=== PATIENT | male | born 1975 | race Caucasian/White ===

== ENCOUNTER 2019-11-05 09:56 | Inpatient (IN) | payer OTHER ==
[2019-11-05] VITALS (8 sets, daily range): BP systolic 142–209
[~2019-11-05] VITALS: Ht 185.4 cm; Wt 130.9 kg
--- NOTE | 2019-11-05 10:05 | NUR ---
Patient to ER bed 04 to gown for evaluation. Side rails up.
[2019-11-05] MEDS ORDERED: PIPERACILLIN/TAZO 3.375 GM in NS 50 ML IV ONE (11:00)
[2019-11-05] MEDS ORDERED: OSELTAMIVIR PHOSPHATE 75 MG CAPSULE PO ONE (11:00)
--- NOTE | 2019-11-05 11:00 | NUR ---
PATIENT PRESENTS TO THE ER WITH HX OF COUGH WITH FEVER AND BODY ACHES FOR ONE WEEK; NO TRAUMA, NO OTHER REMARKABLE S/S; PATIENT IS ON FRONT OFFICE ASSOCIATE AND SAO2, OXYGEN 3LM NC; NASAL SWAB FOR FLU; NO TRAUMA, NO OTHER REMARKABLE S/S
--- NOTE | 2019-11-05 11:02 | NUR ---
PATIENT TO ER #4 AT 1005 AND ERMD EVALUATION AT 1020
[2019-11-05 11:19] LABS: BASOPHILS # (AUTO) 0.1 K/uL (0.0-0.2); BASOPHILS % (AUTO) 0.8 % (0.0-2.0); HEMOGLOBIN 13.1 g/dL (14.0-18.0); MEAN CORPUSCULAR HEMOGLOBIN 29 pg (27-31); MEAN CORPUSCULAR HGB CONC 35 % (32-36); MEAN CORPUSCULAR VOLUME 83 fL (79.0-98.0); MONOCYTES # (AUTO) 0.6 K/uL (0.0-1.0); MONOCYTES % (AUTO) 5.6 % (1.7-9.3); NEUTROPHILS # (AUTO) 9.5 K/uL (1.8-7.7); NEUTROPHILS % (AUTO) 84.6 % (40.0-70.0); PLATELET COUNT (AUTO) 262 K/uL (130-430); RED CELL DISTRIBUTION WIDTH 14.4 % (9.0-15.0); WHITE BLOOD COUNT (AUTO) 11.3 K/uL (4.8-10.8)
[2019-11-05] MEDS ORDERED: PIPERACILLIN/TAZOBACTAM 3.375 GM/VIAL (ZOSYN) IV ONE (11:29)
[2019-11-05 11:32] LABS: CALCIUM 8.8 mg/dL (8.4-11.0); CREATININE 1.24 mg/dL (0.55-1.30); POTASSIUM 3.1 mmol/L (3.5-5.1)
[2019-11-05 11:35] LABS: INR 1.1 (0.80-1.20)
[2019-11-05 11:37] LABS: ALBUMIN 2.6 g/dL (3.4-4.8); TOTAL BILIRUBIN 0.9 mg/dL (0.0-1.0)
--- NOTE | 2019-11-05 11:43 | NUR ---
ABP REMAINS ELEVATED, REASSESSMENT BY ERMD; ORDERS EXECUTED
[2019-11-05] MEDS ORDERED: hydrALAZINE HCL 20 MG/ML VIAL IVP ONE (11:45)
[2019-11-05] MEDS ORDERED: ASPIRIN 81 MG TAB.CHEW PO ONE (12:00)
--- NOTE | 2019-11-05 12:16 | NUR ---
SAO2 DECREASE AND TEMPERATURE INCREASE, ERMD ADVISED; PATIENT REMAINS SEDATE AND PAIN FREE; DISPOSITION PENDING
[2019-11-05] MEDS ORDERED: FUROSEMIDE 40 MG/4 ML VIAL IVP ONE (12:30)
[2019-11-05] MEDS ORDERED: ENALAPRILAT DIHYDRATE 1.25 MG/ML VIAL IVP ONE (12:30)
[2019-11-05] MEDS ORDERED: NITROGLYCERIN 1 INCH (GM) OINT. TP ONE (12:30)
--- NOTE | 2019-11-05 13:01 | NUR ---
REASSESSMENT; PATIENT IS SEDATE WITH IMPROVED VS, ON BY-PAP; DENIES PAIN; ICU ADMISSION PENDING
[2019-11-05] MEDS ORDERED: ASPIRIN 81 MG TAB.CHEW ONE (14:43)
[2019-11-05] MEDS ORDERED: NITROGLYCERIN 1 INCH (GM) OINT. ONE (14:43)
[2019-11-05] MEDS ORDERED: FUROSEMIDE 40 MG/4 ML VIAL ONE (14:44)
[2019-11-05] MEDS ORDERED: ENALAPRILAT DIHYDRATE 1.25 MG/ML VIAL ONE (14:46)
[2019-11-05] MEDS ORDERED: ALBUTEROL SULFATE 0.083% 2.5 MG/3 ML VIAL.NEB INH SCH (15:00)
--- NOTE | 2019-11-05 15:36 | NUR ---
REASSESSMENT; PATIENT REMAINS SEDATE AND PAIN FREE; DISPOSTION TO ICU PENDING
--- NOTE | 2019-11-05 17:14 | NUR ---
REASSESSMENT; PATIENT PREPARED FOR ADMISSION TO ICU; REMAINS SEDATE AND ASYMPTOMATIC; PATIENT TRANSPORTED ACLS, IMPROVED
--- NOTE | 2019-11-05 17:35 | NUR ---
ADMITTED FROM ER, PATIENT IS AWAKE AND ALERT, NOT IN ACUTE DISTRESS. O2 AT 15L VIA VENTURI MASK, SPO2 GOOD. SINUS TACHYCARDIA ON THE MONITOR. INITIAL VITAL SIGNS CHECKED AND RECORDED. DENIES ANY FORM OF DISCOMFORT. WILL CONTINUE TO MONITOR.
[2019-11-05] MEDS ORDERED: IPRATROPIUM BROM 0.5 MG/2.5 ML VIAL.NEB (ATROVENT) INH PRN (18:00)
[2019-11-05] MEDS ORDERED: ALBUTEROL SULFATE 0.083% 2.5 MG/3 ML VIAL.NEB INH PRN (18:00)
--- NOTE | 2019-11-05 18:30 | NUR ---
DR. SWANSON AND DR. GOLDBERG HERE TO SEE PATIENT.
[2019-11-05] MEDS ORDERED: POTASSIUM CHLORIDE 20 MEQ TAB.PRT.SR PO ONE (18:45)
--- NOTE | 2019-11-05 19:14 | NUR ---
SPOKE TO DR. SINGH RE: CONSULT FOR ELEVATED TROPONIN, WILL COME AND SEE THE PATIENT.
--- NOTE | 2019-11-05 19:30 | NUR ---
initial PM note Received patient after report from Ani TIMMONS. Patient AAO x4, denies pain or discomfort; no respiratory difficulty noted at this time. Venti mask in place at 15 L/min. Lung sounds mild Rhonchi and decreased BL bases. IV site L hand #20g patent and no signs of infiltration noted. Blood pressure noted to start climbing from 150 systolic to 167. will continue to monitor for changes. Call light within reach.
[2019-11-05] MEDS: ALBUTEROL SULFATE 0.083% 2.5 MG/3 ML VIAL.NEB INH SCH (20:01)
[2019-11-05] MEDS: IPRATROPIUM BROM 0.5 MG/2.5 ML VIAL.NEB (ATROVENT) INH SCH (20:01)
[2019-11-05] MEDS: cefTRIAXone 1 GM in D5W 50 ML IV SCH (21:53)
[2019-11-05] MEDS ORDERED: ENALAPRILAT DIHYDRATE 1.25 MG/ML VIAL IVP PRN (22:00)
--- NOTE | 2019-11-05 22:45 | NUR ---
Patient's blood pressure elevated 184/95. Dr Ramírez contacted and orders for Vasotec received and delivered to patient. will continue to monitor.
[2019-11-05] MEDS: AZITHROMYCIN 500 MG in NS 250 ML IV SCH (23:38)
[2019-11-06] VITALS (19 sets, daily range): BP systolic 138–200
--- NOTE | 2019-11-06 00:26 | NUR ---
PAGED DR. AGUIRRE [phone] SPOKE WITH GUERA
--- NOTE | 2019-11-06 00:43 | NUR ---
PAGED DR. SINGH [phone] SPOKE WITH GUERA
--- NOTE | 2019-11-06 00:50 | NUR ---
Dr de oliveira called and transferred by answering service. Dr De Oliveira was informed of patient's increased blood pressure and inability to control by previously administered vasotec. Orders received for Losartan 50 mg PO now and Q am. will give medication now and continue to monitor.
[2019-11-06] MEDS ORDERED: LOSARTAN POTASSIUM 50 MG TABLET (COZAAR) PO ONE (01:00)
[2019-11-06] MEDS: VANCOMYCIN HCL 2,000 MG in NS 500 ML IV SCH ×3 (01:10→21:53)
[2019-11-06] MEDS: ALBUTEROL SULFATE 0.083% 2.5 MG/3 ML VIAL.NEB INH SCH ×2 (01:50→20:35)
[2019-11-06] MEDS: IPRATROPIUM BROM 0.5 MG/2.5 ML VIAL.NEB (ATROVENT) INH SCH ×2 (01:51→20:35)
[2019-11-06 05:57] LABS: BASOPHILS # (AUTO) 0.1 K/uL (0.0-0.2); BASOPHILS % (AUTO) 0.5 % (0.0-2.0); EOSINOPHILS % (AUTO) 0.2 % (0.0-4.0); HEMATOCRIT 34.2 % (36-54); HEMOGLOBIN 11.8 g/dL (14.0-18.0); LYMPHOCYTES # (AUTO) 1.4 K/uL (1.0-5.5); LYMPHOCYTES % (AUTO) 12.2 % (20.5-51.5); MEAN CORPUSCULAR HEMOGLOBIN 29 pg (27-31); MEAN CORPUSCULAR HGB CONC 34 % (32-36); MEAN CORPUSCULAR VOLUME 83 fL (79.0-98.0); MONOCYTES # (AUTO) 1.1 K/uL (0.0-1.0); MONOCYTES % (AUTO) 9.8 % (1.7-9.3); NEUTROPHILS # (AUTO) 8.6 K/uL (1.8-7.7); NEUTROPHILS % (AUTO) 77.3 % (40.0-70.0); PLATELET COUNT (AUTO) 259 K/uL (130-430); RED BLOOD CELL COUNT(AUTO) 4.11 MIL/uL (4.2-6.2); RED CELL DISTRIBUTION WIDTH 14.1 % (9.0-15.0); WHITE BLOOD COUNT (AUTO) 11.1 K/uL (4.8-10.8)
[2019-11-06 05:58] LABS: ALBUMIN 2.3 g/dL (3.4-4.8); CALCIUM 7.8 mg/dL (8.4-11.0); CREATININE 0.97 mg/dL (0.55-1.30); POTASSIUM 3.1 mmol/L (3.5-5.1); TOTAL BILIRUBIN 0.8 mg/dL (0.0-1.0)
[2019-11-06] MEDS: LOSARTAN POTASSIUM 50 MG TABLET (COZAAR) PO SCH (08:25)
[2019-11-06] MEDS ORDERED: POTASSIUM CHLORIDE 20 MEQ TAB.PRT.SR PO ONE (09:00)
--- NOTE | 2019-11-06 10:00 | NUR ---
DR LOCKETT OF CARDIOLOGY IS HERE AND AWARE THE PT IS STILL VERY HYPERTENSIVE. HE IS ORDERING SOME MORE MEDICATION. THE PT IS ALERT AND ORIENTATED WITHOUT C/O.
[2019-11-06] MEDS: hydrALAZINE HCL 25 MG TABLET PO SCH ×2 (10:21→21:56)
[2019-11-06] MEDS ORDERED: methylPREDNISolone SOD SUCC 40 MG/ML VIAL IVP ONE (11:00)
[2019-11-06] MEDS ORDERED: ENOXAPARIN SODIUM 40 MG/0.4 ML SYRINGE SUBCUT ONE (11:00)
--- NOTE | 2019-11-06 11:12 | NUR ---
Discharge Planning/ICU Assessment completed MERCHANDISE TEAM MANAGER met with patient at bedside. Patient is alert and oriented. He does not expect to have any discharge needs and stated he has no Social Service needs. He has no PCP. Discussed the need for and how to obtain a PCP. Patient agrees and is competent to follow up. No barriers to discharge home with apparent at this time. Possible need of O2. Social Service/Case Management/Media Theorist And Author Of will remain available.
--- NOTE | 2019-11-06 12:00 | NUR ---
APRESOLINE WAS ORDERED AND THE PTS BLOOD PRESSURE IS BETTER. THE PT HAS NO C/O.
[2019-11-06] MEDS: cefTRIAXone 1 GM in D5W 50 ML IV SCH (17:30)
[2019-11-06] MEDS: AZITHROMYCIN 500 MG in NS 250 ML IV SCH (17:33)
[2019-11-06] MEDS ORDERED: amLODIPine BESYLATE 10 MG TABLET PO SCH (18:00)
[2019-11-06] MEDS ORDERED: amLODIPine BESYLATE 10 MG TABLET PO ONE (18:00)
--- NOTE | 2019-11-06 18:00 | NUR ---
THE PT HAS AN ORDER TO TRANSFER. I WAS GIVING THE PT HIS IV ANITBIOTIC THE PT C/O HIS IV WAS LEAKING. I THEREFORE STARTED AN IV ON HIS RIGHT HAND. HIS BLOOD PRESSURE NEEDED TO GO DOWN SOME MORE AND DR LOCKETT PUT IN AN ORDER FOR [facility]. PT IS STABLE AND WITHOUT C/O.
--- NOTE | 2019-11-06 18:38 | NUR ---
Notes- Received pt from ICU, awake and oriented. On o2 4l tolerating well. Dinner tray given. Family at bedside. Denies any pain or discomfort. Will endorse
[2019-11-06] MEDS: methylPREDNISolone SOD SUCC 40 MG/ML VIAL IVP SCH (21:53)
--- NOTE | 2019-11-06 22:25 | NUR ---
VANCOMYCIN 2000 MG IVPB administer as ordered no adverse Reaction noted skin Rash free dry warm .
--- NOTE | 2019-11-07 | NUR ---
ASSIST PATIENT OUT OF BED ambulates steady GAIT no SOB safety measures implemented .
[2019-11-07] MEDS: ALBUTEROL SULFATE 0.083% 2.5 MG/3 ML VIAL.NEB INH SCH ×4 (00:20→20:16)
[2019-11-07] MEDS: IPRATROPIUM BROM 0.5 MG/2.5 ML VIAL.NEB (ATROVENT) INH SCH ×4 (00:21→20:16)
[2019-11-07 00:28] VITALS: BP_SYST 145
--- NOTE | 2019-11-07 03:30 | NUR ---
Hourly Rounding patient Resting is verbally Responsive HOB elevated on 02 NC @ 2 LPM chest movement symmetrical call bustillo given to patient .
--- NOTE | 2019-11-07 03:34 | NUR ---
SAFETY measures patient Resting Respirations Regular also unlabored no acute distress noted assist as needed .
[2019-11-07 07:52] LABS: ALBUMIN 2.5 g/dL (3.4-4.8); BASOPHILS # (AUTO) 0.1 K/uL (0.0-0.2); BASOPHILS % (AUTO) 0.5 % (0.0-2.0); CALCIUM 8.2 mg/dL (8.4-11.0); CREATININE 0.96 mg/dL (0.55-1.30); HEMATOCRIT 35.8 % (36-54); HEMOGLOBIN 12.6 g/dL (14.0-18.0); LYMPHOCYTES # (AUTO) 1.1 K/uL (1.0-5.5); LYMPHOCYTES % (AUTO) 8.3 % (20.5-51.5); MEAN CORPUSCULAR HEMOGLOBIN 31 pg (27-31); MEAN CORPUSCULAR HGB CONC 35 % (32-36); MONOCYTES # (AUTO) 0.5 K/uL (0.0-1.0); MONOCYTES % (AUTO) 3.7 % (1.7-9.3); NEUTROPHILS # (AUTO) 11.8 K/uL (1.8-7.7); NEUTROPHILS % (AUTO) 87.5 % (40.0-70.0); PLATELET COUNT (AUTO) 314 K/uL (130-430); POTASSIUM 3.5 mmol/L (3.5-5.1); RED BLOOD CELL COUNT(AUTO) 4.08 MIL/uL (4.2-6.2); RED CELL DISTRIBUTION WIDTH 13.9 % (9.0-15.0); TOTAL BILIRUBIN 0.6 mg/dL (0.0-1.0); WHITE BLOOD COUNT (AUTO) 13.5 K/uL (4.8-10.8)
[2019-11-07 08:00] VITALS: BP_SYST 183
--- NOTE | 2019-11-07 08:00 | NUR ---
Note Pt sitting up in bed with O2 at 2L/nc, eating his breakfast at this time. No SOB/resp distress or pain/discomfort noted at this time. Tele unit attached and intact. IV in right hand intact and patent at this time. No needs noted at this time. Call light within reach.
[2019-11-07 08:10] LABS: MEAN CORPUSCULAR VOLUME 88 fL (79.0-98.0)
[2019-11-07] MEDS: hydrALAZINE HCL 25 MG TABLET PO SCH ×2 (08:15→21:17)
[2019-11-07] MEDS: LOSARTAN POTASSIUM 50 MG TABLET (COZAAR) PO SCH (08:16)
[2019-11-07] MEDS: amLODIPine BESYLATE 10 MG TABLET PO SCH (08:17)
[2019-11-07] MEDS: methylPREDNISolone SOD SUCC 40 MG/ML VIAL IVP SCH ×2 (08:17→21:17)
[2019-11-07] MEDS: VANCOMYCIN HCL 2,000 MG in NS 500 ML IV SCH ×2 (08:21→21:16)
[2019-11-07] MEDS: ENOXAPARIN SODIUM 40 MG/0.4 ML SYRINGE SUBCUT SCH (08:24)
[2019-11-07] MEDS ORDERED: methylPREDNISolone SOD SUCC 40 MG/ML VIAL ONE (08:26)
--- NOTE | 2019-11-07 11:00 | NUR ---
Note Dr Mcgowan and Dr Dolan assessed pt at bedside. No needs noted at this time. Call light within reach.
[2019-11-07 11:36] VITALS: BP_SYST 160
--- NOTE | 2019-11-07 12:00 | NUR ---
Note Pt was seen and assessed by Dr Ramírez and Dr Dorman and orders written and carried out. Pt ambulatory with steady gait in room. No needs noted. Pt sitting up in BS chair at this time. Call light within reach.
--- NOTE | 2019-11-07 14:15 | NUR ---
Note Pt denies any needs at this time. Continues to ambulate in room and at ad tio.
[2019-11-07 15:51] VITALS: BP_SYST 123
[2019-11-07] MEDS: cefTRIAXone 1 GM in D5W 50 ML IV SCH (17:38)
[2019-11-07] MEDS: AZITHROMYCIN 500 MG in NS 250 ML IV SCH (18:15)
--- NOTE | 2019-11-07 18:55 | NUR ---
Note Pt was checked on q1' and PRN all shift for needs and care. No SOB/resp distress or chest pain/discomfort noted at this time. IV in right hand intact and patent. Pt ambulatory in room and hallway with steady gait and no SOB on ambulation noted. Call light within reach.
[2019-11-07 19:00] VITALS: BP_SYST 153
--- NOTE | 2019-11-07 19:15 | NUR ---
change of shift.pt.presents quiescent affect;calm,resting,reading.no c/o pain,nausea.pt.presents admit dx;pna; respiratory patten/.character unlabored.pt.presents stable respiratory status@room air.no c/o pain,nausea.iv fluids infusing.zithromax;abx;ivpb.pt.capable to ambulate w/out assistance.call light/telephone w/in reach of the pt.i have presented the room telephone indication.pt.understanding satisfactory.
[2019-11-07 20:00] VITALS: BP_SYST 153
--- NOTE | 2019-11-07 20:00 | NUR ---
pt.assessed.v/s assessed;noted b/p slightly elevated.to review e-mar med-list.b/p medications.i have apprised the pt.that i may provide snacks/beverages w/in the shift.no requests posited@this hour.no c/o pain,nausea.pt.capable to ambulate w/out assistance.genera status stable;respiratory status stable;unlabored;noted o2-sat%=93%@room air.pt.refused o2 therapy via nasal cannulae. family@the bedside. has inquired of the projected d/c date.pt.stated tentative tomorrow;;11/08/19.i have prestented pt. pt.instructions;re;s/s stroke,stroke preventions./interventions.i have reviewed the b/p parameters; pt.presents htn history but has not followed medication regime in the past.to f/u.i noted that the blood glucose presents elevated level:>300's pt.he is not diabetic bit will f/u as an pout pt.w/pmd.
--- NOTE | 2019-11-07 21:00 | NUR ---
2100p medication administered.i have administered vancomycin;abx;ivpb.pt.requested juice;cranberry.i have provided the juice.
--- NOTE | 2019-11-07 22:00 | NUR ---
pt.assessed.pt.presents quiescent affect;calm,resting viewing tv programming.pt.is ambulalting upon the unit;gait assessed; steady. family has left the room.no c/o pain,nausea.no requests posited@this hour.call light/telephone w/in reach of the pt.
[2019-11-08] VITALS: BP_SYST 142
--- NOTE | 2019-11-08 | NUR ---
pt.assessed.v/s assessed;values w/in normal limits.no c/o pain,nausea.o2-sat%=98%.unlabored.i have removed the iv fluids;ns-flush post administration vancomycin;abx;ivpb.pt.requested snacks/juice.i have prove a sandwich/crackers,cranberry juice.call light/telephone w/in reach of the pt.
[2019-11-08] MEDS: ALBUTEROL SULFATE 0.083% 2.5 MG/3 ML VIAL.NEB INH SCH ×2 (01:26→07:46)
[2019-11-08] MEDS: IPRATROPIUM BROM 0.5 MG/2.5 ML VIAL.NEB (ATROVENT) INH SCH ×2 (01:31→07:46)
--- NOTE | 2019-11-08 02:00 | NUR ---
pt.assessed.pt.presents quiescent affect;calm,resting.viewing tv programming.pt.requested juice;cranberry.i have provided the juice. no additional requests posited@this hour.no c/o pain,nausea.call light/telephone w/in the reach of the pt.
--- NOTE | 2019-11-08 04:00 | NUR ---
pt.assessed.pt.presents quiescent affect;calm,resting viewing tv programming.pt.had requested cough medication.i reviewed the [facility] med-list.no cough medication ordered.i apprised the pt.pt.noted the late hour and did not pursue paging the md.no additional requests posited @this hour.
--- NOTE | 2019-11-08 06:43 | NUR ---
pt.assessed.pt.presents quiescent affect;calm,resting viewing tv programming.no c/o pain,nausea.no requests posited@this hour. i have weighed the pt.this am;2/t chf.general status stable.respiratory status stable;unlabored;02-sat%=94%.call light/telephone w/in reach of the pt.
--- NOTE | 2019-11-08 07:30 | NUR ---
Opening Note Patient received awake and eating at this time with no complaints of pain. Patient in no signs of distress. Reinforced safety precautions and use of call light. Bed at lowest position.
[2019-11-08 08:00] VITALS: BP_SYST 167
[2019-11-08 08:11] LABS: ALBUMIN 2.7 g/dL (3.4-4.8); CALCIUM 8.8 mg/dL (8.4-11.0); CREATININE 1.09 mg/dL (0.55-1.30); POTASSIUM 3.8 mmol/L (3.5-5.1); TOTAL BILIRUBIN 0.6 mg/dL (0.0-1.0)
[2019-11-08] MEDS: methylPREDNISolone SOD SUCC 40 MG/ML VIAL IVP SCH (08:19)
[2019-11-08] MEDS: VANCOMYCIN HCL 2,000 MG in NS 500 ML IV SCH (08:19)
[2019-11-08] MEDS: hydrALAZINE HCL 25 MG TABLET PO SCH (08:20)
[2019-11-08] MEDS: LOSARTAN POTASSIUM 50 MG TABLET (COZAAR) PO SCH (08:20)
[2019-11-08] MEDS: ENOXAPARIN SODIUM 40 MG/0.4 ML SYRINGE SUBCUT SCH (08:21)
[2019-11-08] MEDS: amLODIPine BESYLATE 10 MG TABLET PO SCH (08:21)
[2019-11-08] MEDS ORDERED: INSULIN REGULAR, HUMAN 100 UNITS/ML, 10 ML VIAL SUBCUT ONE (09:00)
[2019-11-08] MEDS ORDERED: NOR10 PO (09:13)
[2019-11-08] MEDS ORDERED: GLU500 PO (09:13)
[2019-11-08] MEDS ORDERED: LOSA50TA3 PO (09:14)
[2019-11-08] MEDS ORDERED: AUG875 PO (09:14)
--- NOTE | 2019-11-08 10:10 | NUR ---
RN Rounds Patient sitting up in chair resting at this time. Patient in no signs of distress. Patient does not complain of pain. Safety precautions reviewed and enforced.
[2019-11-08 10:18] VITALS: BP_SYST 167
[2019-11-08 11:38] VITALS: BP_SYST 162
--- NOTE | 2019-11-08 12:07 | NUR ---
RN Rounds Patient sitting up and dressed in civilian clothing waiting for . Patient in no signs of distress. Patient does not complain of pain.
--- NOTE | 2019-11-08 13:09 | NUR ---
D/C Patient Patient given medication reconciliation form and D/C instructions. Exit Care provided. Patient verbalized understanding. MD discussed with patient the results and treatment provided. Ambulatory with steady gait for discharge to home. Patient in stable condition, ID band removed. IV catheter removed, intact and dressing applied, no active bleeding. Rx of augmentin, norvasc,cozaar, metformin given. Patient educated on pain management. All belongings sent with patient.
== END 2019-11-08 13:06 | disposition home or self-care (01) | DRG 871 ==
LOC: SED 09:56 → SIC 12:44 → STU 11-06 17:45
PROVIDERS: ADMIT Internal Medicine Hospice and Palliative Medicine; ATTEND Internal Medicine Hospice and Palliative Medicine
PROC: 5A09357 Assistance with Respiratory Ventilation, Less than 24 Consecutive Hours, Continuous Positive Airway Pressure (ICD-10-PCS; principal; 2019-11-05)
DX: A41.9 Sepsis, unspecified organism (principal); J18.9 Pneumonia, unspecified organism; J96.01 Acute respiratory failure with hypoxia; I21.A1 Myocardial infarction type 2; N17.0 Acute kidney failure with tubular necrosis; E87.1 Hypo-osmolality and hyponatremia; I10 Essential (primary) hypertension; E87.6 Hypokalemia; D64.9 Anemia, unspecified; E66.9 Obesity, unspecified; Z82.49 Family history of ischemic heart disease and other diseases of the circulatory system; Z91.14 Patient's other noncompliance with medication regimen; Z91.19 Patient's noncompliance with other medical treatment and regimen; Z79.899 Other long term (current) drug therapy; Z68.38 Body mass index [BMI] 38.0-38.9, adult
CPT/HCPCS: 36415; 36600; 71045; 80053; 80202-TC; 82803-TC; 83605; 83880; 84484; 85025; 85610-TC; 85651-TC; 85730-TC; 86710; 86738; 87040-TC; 87081; 93005; 93306; 94640; 94660; 96365; 96367; 96375; 99291; G0378; G9035; J0360; J0456; J0696; J1030; J1650; J1815; J1940; J1956; J2543; J3370; J7040; J7050; J7060; J7613